=== PATIENT | female | born 1965 | race Caucasian/White ===

== ENCOUNTER 2017-07-19 13:21 | Emergency (ER) | payer MEDICAID ==
[~2017-07-19] VITALS: Ht 165.1 cm; Wt 77.1 kg
[2017-07-19 13:23] VITALS: Ht 165.1 cm; Wt 77.1 kg
[2017-07-19 14:53] LABS: AMPHETAMINE QUAL UR NONE DETECTED (NEG <=1000)
[2017-07-19 15:00] LABS: BASOPHIL % 0.4 % (0-2); PLATELET COUNT 297 x10^3mcL (130-400); RED CELL DISTRIBUTION WIDTH 12.3 % (11.5-14.5)
[2017-07-19 15:10] LABS: CALCIUM 8.9 mg/dL (8.5-10.1); CARBON DIOXIDE 25.3 mmol/L (21-32); CHLORIDE SERUM 107 mmol/L (98-107); CREATININE SERUM 0.7 mg/dL (0.6-1.0); GFR1 > 60 mL/min; GLUCOSE SERUM 122 mg/dL (74-106); POTASSIUM SERUM 3.5 mmol/L (3.5-5.1); SODIUM SERUM 142 mmol/L (136-145)
[2017-07-19 15:17] LABS: ALKALINE PHOSPHATASE 99 U/L (46-116); ALT/SGPT 39 U/L (14-59); AST/SGOT 25 U/L (15-37); BILIRUBIN TOTAL 0.4 mg/dL (0.20-1.00); TOTAL PROTEIN, SERUM 7.8 g/dL (6.4-8.2)
[2017-07-19 15:19] LABS: CHOLESTEROL 213 mg/dL (<200)
[2017-07-19 18:12] LABS: UA SPECIFIC GRAVITY 1.025 (1.005-1.035); microscopic required? YES; urine erythrocyte TRACE (NEGATIVE)
[2017-07-19 18:16] LABS: CHOLESTEROL/HDL RATIO 4.8; PHOSPHOROUS 3.2 mg/dL (2.5-4.9)
[2017-07-19 18:23] LABS: FREE T4 0.88 ng/dL (0.76-1.46); FREE THYROXINE INDEX 2.7 ug/dL (1.4-4.5); T4(THYROXINE) 8.2 ug/dL (4.7-13.3)
[2017-07-19 18:31] LABS: T3 TOTAL 1.09 ng/mL
[2017-07-19 23:00] VITALS: BP 96/65
== END 2017-07-19 23:00 | disposition left against medical advice (07) ==
LOC: ED 13:21 → DU 16:32 → ED 16:32
PROVIDERS: Family Medicine
DX: G40.909 Epilepsy, unspecified, not intractable, without status epilepticus (principal)
CPT/HCPCS: 36415; 83880; 84439; C9113; G0480; J1200; J2060; J3486; J7030